=== PATIENT | female | born 1995 | race Caucasian/White ===

== ENCOUNTER 2016-12-29 19:50 | Emergency (ER) | payer MEDICAID ==
[~2016-12-29] VITALS: Ht 157.5 cm; Wt 56.8 kg
[~2016-12-29 19:50] MED LIST: ABILIFY 15MG TA15 MG PO; ADDERALL15 MG PO; ALEVE 220MG220 MG PO; ALEVE220 MG PO; AMOXICILLIN 50500 MG PO; ANAPROX DS550 MG PO; BACTROBAN 22GM22 GM TP; DESYREL 50MG50 MG PO; EC NAPROSYN375 MG PO; FLAGYL500 MG PO; FLINTSTONES1 CTB PO; FOLIC ACID0.4 MG PO; MOTRIN 800800 MG/TAB PO; NO HOME MEDICATIONS; NORCO 325 MG-7.1 TAB PO; PHENERGAN 25 TA25 MG PO; PRENATAL1 TA2 PO; TRAZADONE HYDR100 MG PO; TRAZODO50 MG PO; TRINESSA 281 TAB PO
[2016-12-29 19:53] VITALS: BP 138/70; TEMP 97.8
[2016-12-29 21:06] VITALS: PULSE 69
== END 2016-12-29 21:10 | disposition home or self-care (01) ==
LOC: COL.ER 19:50
DX: S61.512A Laceration without foreign body of left wrist, initial encounter (principal); W25.XXXA Contact with sharp glass, initial encounter; Y92.009 Unspecified place in unspecified non-institutional (private) residence as the place of occurrence of the external cause

== ENCOUNTER 2017-02-12 12:39 | Emergency (ER) | payer MEDICAID ==
[~2017-02-12] VITALS: Ht 160 cm; Wt 59.1 kg
[2017-02-12 12:47] VITALS: TEMP 98.1
[2017-02-12] MEDS ORDERED: BIRTH CONTROL (12:50)
[2017-02-12 14:29] LABS: BASO # 0.1 (0.0-0.2); BASO % 0.8 % (0.0-2.0); EOS # 0.1 (0.0-0.7); EOS % 1.9 % (0-4.0); GRAN # 3.5 (1.4-6.5); GRAN % 55.1 % (42.2-75.2); HEMATOCRIT 38.3 % (37.0-47.0); HEMOGLOBIN 12.6 g/dl (12.5-16.0); LYMPH # 2.3 (1.2-3.4); LYMPH % 37.3 % (20.0-51.0); MEAN CELL VOLUME 90 fl (80.0-100.0); MEAN CORPUSCULAR HEMOGLOBIN 29 pg (27.0-31.0); MEAN CORPUSCULAR HGB CONC 33 g/dl (33.0-37.0); MEAN PLATELET VOLUME 10.4 fl (7.4-10.4); MONO # 0.3 (0.1-0.6); MONO % 4.6 % (1.7-9.3); PLATELET COUNT 238 K/mm3 (130-400); RED BLOOD COUNT 4.28 M/mm3 (4.10-5.30); REDCELL DISTRIBUTION WIDTH-CV 14.1 % (11.5-14.5); WHITE BLOOD COUNT 6.3 K/mm3 (4.8-10.8)
[2017-02-12 14:42] LABS: ADJUSTED CALCIUM 9.5 mg/dL (8.4-10.2); ALBUMIN 4.4 gm/dL (3.5-5.0); BILIRUBIN,TOTAL 0.6 mg/dL (0.0-1.0); CALCIUM 9.8 mg/dL (8.4-10.2); CREATININE, serum 0.76 mg/dL (0.52-1.25); POTASSIUM 4.5 mmol/L (3.4-5.0); TOTAL PROTEIN 7.9 gm/dL (6.4-8.2)
[2017-02-12 15:17] VITALS: BP 109/55; PULSE 56
== END 2017-02-12 15:17 | disposition home or self-care (01) ==
LOC: COL.ER 12:39
PROVIDERS: Physician Assistant
DX: N92.0 Excessive and frequent menstruation with regular cycle (principal)

== ENCOUNTER 2017-05-07 11:24 | Emergency (ER) | payer MEDICAID ==
[~2017-05-07] VITALS: Ht 160 cm; Wt 58.6 kg
[~2017-05-07 11:24] MED LIST changes: +BIRTH CONTROL
[2017-05-07 11:34] VITALS: TEMP 99.5
[2017-05-07] MEDS ORDERED: TRINESSA 281 TAB PO (11:37)
[2017-05-07 13:53] LABS: BASO % 0.3 % (0.0-2.0); EOS # 0.2 (0.0-0.7); EOS % 1.5 % (0-4.0); GRAN # 8.5 (1.4-6.5); GRAN % 86.3 % (42.2-75.2); HEMATOCRIT 40.1 % (37.0-47.0); HEMOGLOBIN 13.7 g/dl (12.5-16.0); LYMPH # 0.8 (1.2-3.4); LYMPH % 8.3 % (20.0-51.0); MEAN CELL VOLUME 89 fl (80.0-100.0); MEAN CORPUSCULAR HEMOGLOBIN 30 pg (27.0-31.0); MEAN CORPUSCULAR HGB CONC 34 g/dl (33.0-37.0); MEAN PLATELET VOLUME 10.1 fl (7.4-10.4); MONO # 0.3 (0.1-0.6); MONO % 3.2 % (1.7-9.3); PLATELET COUNT 240 K/mm3 (130-400); RED BLOOD COUNT 4.53 M/mm3 (4.10-5.30); REDCELL DISTRIBUTION WIDTH-CV 12.8 % (11.5-14.5); WHITE BLOOD COUNT 9.8 K/mm3 (4.8-10.8)
[2017-05-07 14:09] LABS: ALANINE AMINOTRANSFERASE 26 U/L (9-52); ALBUMIN 4.3 gm/dL (3.5-5.0); ALKALINE PHOSPHATASE 108 U/L (50-136); ANION GAP 13 mmol/L (7-16); BILIRUBIN,TOTAL 0.9 mg/dL (0.0-1.0); BLOOD UREA NITROGEN 21 mg/dL (7-17); CALCIUM 9.2 mg/dL (8.4-10.2); CARBON DIOXIDE 23 mmol/L (22-30); CHLORIDE 104 mmol/L (98-107); CREATININE, serum 0.73 mg/dL (0.52-1.25); GLUCOSE 98 mg/dL (74-106); SODIUM 139 mmol/L (137-145); TOTAL PROTEIN 7.1 gm/dL (6.4-8.2)
[2017-05-07 14:10] LABS: C-REACTIVE PROTEIN < 0.5 mg/dL (0.0-0.9)
[2017-05-07] MEDS ORDERED: PHENERGAN 25 TA25 MG PO (14:46)
[2017-05-07 15:01] VITALS: BP 110/62; PULSE 72
== END 2017-05-07 14:50 | disposition home or self-care (01) ==
LOC: COL.ER 11:24
PROVIDERS: Nurse Practitioner
DX: R11.2 Nausea with vomiting, unspecified (principal); R19.7 Diarrhea, unspecified

== ENCOUNTER 2017-10-04 16:43 | Emergency (ER) | payer SELFPAY ==
[~2017-10-04] VITALS: Ht 157.5 cm; Wt 62.3 kg
[~2017-10-04 16:43] MED LIST changes: +ATHLETE'S FOOT1% TP; +PRENATAL1 TA7 PO
[2017-10-04 17:00] VITALS: BP 122/61; PULSE 94; TEMP 97.7
== END 2017-10-04 17:21 | disposition left against medical advice (07) ==
LOC: COL.ER 16:43
DX: Z32.01 Encounter for pregnancy test, result positive (principal)

== ENCOUNTER 2017-11-28 09:14 | Emergency (ER) | payer SELFPAY ==
[~2017-11-28] VITALS: Ht 157.5 cm; Wt 58.4 kg
[2017-11-28 09:21] VITALS: TEMP 98.4
[2017-11-28 10:00] LABS: BASO # 0.1 (0.0-0.2); BASO % 0.4 % (0.0-2.0); EOS # 0.1 (0.0-0.7); EOS % 1.2 % (0-4.0); GRAN # 8.3 (1.4-6.5); GRAN % 69.8 % (42.2-75.2); HEMATOCRIT 41.2 % (37.0-47.0); LYMPH # 2.8 (1.2-3.4); LYMPH % 23.1 % (20.0-51.0); MEAN CELL VOLUME 89 fl (80.0-100.0); MEAN CORPUSCULAR HEMOGLOBIN 30 pg (27.0-31.0); MEAN CORPUSCULAR HGB CONC 34 g/dl (33.0-37.0); MEAN PLATELET VOLUME 9.8 fl (7.4-10.4); MONO # 0.6 (0.1-0.6); MONO % 4.7 % (1.7-9.3); PLATELET COUNT 277 K/mm3 (130-400); RED BLOOD COUNT 4.64 M/mm3 (4.10-5.30); REDCELL DISTRIBUTION WIDTH-CV 13.4 % (11.5-14.5)
[2017-11-28 10:11] LABS: ALBUMIN 5.6 gm/dL (3.5-5.0); BILIRUBIN,TOTAL 0.7 mg/dL (0.0-1.0); C-REACTIVE PROTEIN 1.3 mg/dL (0.0-0.9); CALCIUM 10.8 mg/dL (8.4-10.2); CREATININE, serum 0.64 mg/dL (0.52-1.25); POTASSIUM 3.9 mmol/L (3.4-5.0); TOTAL PROTEIN 9.6 gm/dL (6.4-8.2)
[2017-11-28 10:35] LABS: COLLECTION METHOD CLEAN CATCH
[2017-11-28 11:02] LABS: MUCOUS Present /lpf; PH 5 (5-8); URINE APPEARANCE Cloudy; URINE BACTERIA Rare /hpf; URINE BILIRUBIN Negative (NEGATIVE); URINE BLOOD Negative (NEGATIVE); URINE COLOR Amber; URINE GLUCOSE Negative (NEGATIVE); URINE KETONE Trace (NEGATIVE); URINE LEUKOCYTE ESTERASE Negative (NEGATIVE); URINE NITRATE Negative (NEGATIVE); URINE PROTEIN(semi-quant) 2+ (NEGATIVE); URINE UROBILINOGEN Negative (NEGATIVE)
[2017-11-28] MEDS ORDERED: PHENERGAN 25 TA25 MG PO (13:16)
[2017-11-28 13:32] VITALS: BP 104/84; PULSE 60
== END 2017-11-28 13:34 | disposition home or self-care (01) ==
LOC: COL.ER 09:14
PROVIDERS: Emergency Medicine
DX: O99.611 Diseases of the digestive system complicating pregnancy, first trimester (principal); K59.00 Constipation, unspecified; K22.6 Gastro-esophageal laceration-hemorrhage syndrome; Z3A.00 Weeks of gestation of pregnancy not specified
CPT/HCPCS: J2550; J7030

== ENCOUNTER 2017-12-02 22:28 | Emergency (ER) | payer SELFPAY ==
[~2017-12-02] VITALS: Ht 157.5 cm; Wt 58.2 kg
[2017-12-02 22:33] VITALS: BP 114/63; TEMP 98
[2017-12-02 23:13] LABS: COLLECTION METHOD CLEAN CATCH
[2017-12-02 23:18] LABS: BASO # 0.1 (0.0-0.2); BASO % 0.4 % (0.0-2.0); EOS # 0.2 (0.0-0.7); EOS % 1.5 % (0-4.0); GRAN # 7.7 (1.4-6.5); GRAN % 68.8 % (42.2-75.2); HEMATOCRIT 34.4 % (37.0-47.0); HEMOGLOBIN 11.9 g/dl (12.5-16.0); LYMPH # 2.7 (1.2-3.4); LYMPH % 24.2 % (20.0-51.0); MEAN CELL VOLUME 89 fl (80.0-100.0); MEAN CORPUSCULAR HEMOGLOBIN 31 pg (27.0-31.0); MEAN CORPUSCULAR HGB CONC 35 g/dl (33.0-37.0); MEAN PLATELET VOLUME 10.1 fl (7.4-10.4); MONO # 0.5 (0.1-0.6); MONO % 4.7 % (1.7-9.3); PLATELET COUNT 235 K/mm3 (130-400); RED BLOOD COUNT 3.88 M/mm3 (4.10-5.30); REDCELL DISTRIBUTION WIDTH-CV 13.2 % (11.5-14.5)
[2017-12-02 23:24] LABS: AMORPHOUS CRYSTAL Present /uL; MUCOUS Present /lpf; PH 6 (5-8); SQUAMOUS EPITHELIAL 20-50 /hpf; URINE APPEARANCE Cloudy; URINE BACTERIA Rare /hpf; URINE BILIRUBIN Negative (NEGATIVE); URINE BLOOD Negative (NEGATIVE); URINE COLOR Yellow; URINE GLUCOSE Negative (NEGATIVE); URINE KETONE Negative (NEGATIVE); URINE LEUKOCYTE ESTERASE Trace (NEGATIVE); URINE NITRATE Negative (NEGATIVE); URINE PROTEIN(semi-quant) Negative (NEGATIVE); URINE RBC 0-2 /hpf; URINE UROBILINOGEN >=4.0 mg/dL (NEGATIVE)
[2017-12-02 23:30] LABS: ALBUMIN 4.2 gm/dL (3.5-5.0); BILIRUBIN,TOTAL 0.2 mg/dL (0.0-1.0); CALCIUM 9.8 mg/dL (8.4-10.2); CREATININE, serum 0.54 mg/dL (0.52-1.25); POTASSIUM 3.4 mmol/L (3.4-5.0); TOTAL PROTEIN 7.5 gm/dL (6.4-8.2)
[2017-12-03 00:46] VITALS: PULSE 84
== END 2017-12-03 00:47 | disposition home or self-care (01) ==
LOC: COL.ER 22:28
PROVIDERS: Physician Assistant
DX: O21.9 Vomiting of pregnancy, unspecified (principal); O26.891 Other specified pregnancy related conditions, first trimester; R10.9 Unspecified abdominal pain; O99.331 Smoking (tobacco) complicating pregnancy, first trimester; F17.210 Nicotine dependence, cigarettes, uncomplicated; Z3A.08 8 weeks gestation of pregnancy
CPT/HCPCS: J2765; J7030

== ENCOUNTER 2019-01-28 12:42 | Emergency (ER) | payer MEDICAID ==
[~2019-01-28] VITALS: Ht 160 cm; Wt 67.3 kg
[2019-01-28 12:46] VITALS: BP 125/60; PULSE 64; TEMP 98.4
[2019-01-28] MEDS ORDERED: ABILIFY5 MG PO (16:02)
== END 2019-01-28 16:39 | disposition home or self-care (01) ==
LOC: COL.ER 12:42
DX: K40.90 Unilateral inguinal hernia, without obstruction or gangrene, not specified as recurrent (principal); F17.210 Nicotine dependence, cigarettes, uncomplicated; F20.9 Schizophrenia, unspecified; F31.9 Bipolar disorder, unspecified; Z98.51 Tubal ligation status

== ENCOUNTER → 2019-03-01 | Outpatient (CLI) | payer MEDICAID ==
[~2019-03-01] MED LIST changes: +ABILIFY5 MG PO
== END ==
LOC: MC.RAD 09:45
DX: N63.42 Unspecified lump in left breast, subareolar (principal)

== ENCOUNTER → 2019-03-07 | Outpatient (CLI) | payer MEDICAID | LOC: MC.RAD 08:00 | DX: N63.20 Unspecified lump in the left breast, unspecified quadrant (principal); Z98.82 Breast implant status ==

== ENCOUNTER 2019-05-29 17:37 | Emergency (ER) | payer MEDICAID | END 2019-05-29 18:50 | disposition left against medical advice (07) | LOC: COL.ER 17:37 | DX: Z72.89 Other problems related to lifestyle (principal) ==

== ENCOUNTER 2019-05-29 19:55 | Emergency (ER) | payer MEDICAID ==
[~2019-05-29] VITALS: Ht 162.6 cm; Wt 73.6 kg
[2019-05-29 20:11] VITALS: TEMP 97.7
[2019-05-29 22:38] LABS: BASO % 0.4 % (0.0-2.0); EOS # 0.1 (0.0-0.7); EOS % 0.7 % (0-4.0); GRAN # 6.4 (1.4-6.5); GRAN % 68.1 % (42.2-75.2); HEMATOCRIT 40.4 % (37.0-47.0); HEMOGLOBIN 13.6 g/dl (12.5-16.0); LYMPH # 2.4 (1.2-3.4); LYMPH % 25.6 % (20.0-51.0); MEAN CELL VOLUME 89 fl (80.0-100.0); MEAN CORPUSCULAR HEMOGLOBIN 30 pg (27.0-31.0); MEAN CORPUSCULAR HGB CONC 34 g/dl (33.0-37.0); MONO # 0.5 (0.1-0.6); MONO % 4.9 % (1.7-9.3); PLATELET COUNT 265 K/mm3 (130-400); RED BLOOD COUNT 4.54 M/mm3 (4.10-5.30); REDCELL DISTRIBUTION WIDTH-CV 12.7 % (11.5-14.5)
[2019-05-29 22:48] LABS: ALANINE AMINOTRANSFERASE 12 U/L (9-52); ALBUMIN 4.8 gm/dL (3.5-5.0); ALKALINE PHOSPHATASE 152 U/L (50-136); ANION GAP 15 mmol/L (7-16); AST,SGOT 19 U/L (15-37); BILIRUBIN,TOTAL 0.7 mg/dL (0.0-1.0); BLOOD UREA NITROGEN 15 mg/dL (7-17); CALCIUM 9.7 mg/dL (8.4-10.2); CARBON DIOXIDE 22 mmol/L (22-30); CHLORIDE 104 mmol/L (98-107); CREATININE, serum 0.74 (0.52-1.25); GLUCOSE 118 mg/dL (74-106); POTASSIUM 3.6 mmol/L (3.4-5.0); SODIUM 142 mmol/L (137-145); TOTAL PROTEIN 8.4 gm/dL (6.4-8.2)
[2019-05-29 22:59] LABS: TROPONIN-I < 0.012 ng/mL (0.000-0.035)
[2019-05-29 23:34] VITALS: BP 129/88; PULSE 63
== END 2019-05-29 23:30 | disposition home or self-care (01) ==
LOC: COL.ER 19:55
PROVIDERS: Emergency Medicine
DX: R55 Syncope and collapse (principal); F31.9 Bipolar disorder, unspecified; Z98.51 Tubal ligation status

== ENCOUNTER 2020-08-14 13:15 | Emergency (ER) | payer MEDICAID ==
[~2020-08-14] VITALS: Ht 162.6 cm; Wt 63.6 kg
[2020-08-14 13:25] VITALS: BP 121/78; TEMP 98
[2020-08-14 14:01] LABS: BASO # 0.1 (0.0-0.2); BASO % 0.5 % (0.0-2.0); EOS % 0.2 % (0-4.0); GRAN # 10.1 (1.4-6.5); GRAN % 77.8 % (42.2-75.2); HEMATOCRIT 45.6 % (37.0-47.0); HEMOGLOBIN 15.6 g/dl (12.5-16.0); LYMPH # 2.2 (1.2-3.4); LYMPH % 17.2 % (20.0-51.0); MEAN CELL VOLUME 90 fl (80.0-100.0); MEAN CORPUSCULAR HEMOGLOBIN 31 pg (27.0-31.0); MEAN CORPUSCULAR HGB CONC 34 g/dl (33.0-37.0); MEAN PLATELET VOLUME 10.4 fl (7.4-10.4); MONO # 0.5 (0.1-0.6); MONO % 3.9 % (1.7-9.3); PLATELET COUNT 280 K/mm3 (130-400); RED BLOOD COUNT 5.08 M/mm3 (4.10-5.30); REDCELL DISTRIBUTION WIDTH-CV 13.2 % (11.5-14.5)
[2020-08-14 14:15] LABS: ALANINE AMINOTRANSFERASE 15 U/L (4-34); ALBUMIN 5.4 gm/dL (3.5-5.0); ALKALINE PHOSPHATASE 127 U/L (50-136); ANION GAP 15 mmol/L (7-16); AST,SGOT 22 U/L (15-37); BLOOD UREA NITROGEN 13 mg/dL (7-17); CALCIUM 10.6 mg/dL (8.4-10.2); CARBON DIOXIDE 23 mmol/L (22-30); CHLORIDE 104 mmol/L (98-107); CREATININE, serum 0.99 (0.52-1.25); GLUCOSE 106 mg/dL (74-106); LIPASE 64 U/L (23-300); POTASSIUM 3.2 mmol/L (3.4-5.0); SODIUM 143 mmol/L (137-145); TOTAL PROTEIN 9.6 gm/dL (6.4-8.2)
[2020-08-14 14:17] LABS: C-REACTIVE PROTEIN < 0.5 mg/dL (0.0-0.9)
[2020-08-14 14:26] LABS: TROPONIN-I < 0.012 ng/mL (0.000-0.035)
[2020-08-14 16:47] VITALS: PULSE 64
== END 2020-08-14 16:47 | disposition home or self-care (01) ==
LOC: COL.ER 13:15
PROVIDERS: Emergency Medicine
DX: R07.89 Other chest pain (principal); K92.0 Hematemesis; R06.4 Hyperventilation; F31.9 Bipolar disorder, unspecified; Z32.02 Encounter for pregnancy test, result negative
CPT/HCPCS: C9113; J1630; J2060; J2405; J7030

== ENCOUNTER 2020-10-15 10:43 | Emergency (ER) | payer MEDICAID ==
[~2020-10-15] VITALS: Ht 160 cm; Wt 62.7 kg
[2020-10-15 10:56] VITALS: TEMP 97.5
[2020-10-15] MEDS ORDERED: DESYREL 50MG50 MG PO (13:37)
[2020-10-15] MEDS ORDERED: PROZAC 10MG10 MG PO (13:47)
[2020-10-15 14:00] LABS: BASO # 0.1 (0.0-0.2); BASO % 0.6 % (0.0-2.0); EOS # 0.1 (0.0-0.7); EOS % 1.5 % (0-4.0); GRAN # 5.1 (1.4-6.5); HEMATOCRIT 40.9 % (37.0-47.0); HEMOGLOBIN 13.6 g/dl (12.5-16.0); LYMPH # 2.5 (1.2-3.4); MEAN CELL VOLUME 92 fl (80.0-100.0); MEAN CORPUSCULAR HEMOGLOBIN 31 pg (27.0-31.0); MEAN CORPUSCULAR HGB CONC 33 g/dl (33.0-37.0); MEAN PLATELET VOLUME 11.3 fl (7.4-10.4); MONO # 0.5 (0.1-0.6); MONO % 5.7 % (1.7-9.3); PLATELET COUNT 123 K/mm3 (130-400); RED BLOOD COUNT 4.46 M/mm3 (4.10-5.30); REDCELL DISTRIBUTION WIDTH-CV 13.3 % (11.5-14.5)
[2020-10-15 14:12] LABS: ALANINE AMINOTRANSFERASE 12 U/L (4-34); ALBUMIN 4.7 gm/dL (3.5-5.0); ALKALINE PHOSPHATASE 90 U/L (50-136); ANION GAP 11 mmol/L (7-16); AST,SGOT 40 U/L (15-37); BILIRUBIN,TOTAL 0.8 mg/dL (0.0-1.0); BLOOD UREA NITROGEN 14 mg/dL (7-17); CALCIUM 9.6 mg/dL (8.4-10.2); CARBON DIOXIDE 21 mmol/L (22-30); CHLORIDE 106 mmol/L (98-107); CREATININE, serum 0.75 (0.52-1.25); GLUCOSE 87 mg/dL (74-106); POTASSIUM 3.9 mmol/L (3.4-5.0); SODIUM 139 mmol/L (137-145); TOTAL PROTEIN 7.7 gm/dL (6.4-8.2)
[2020-10-15 14:25] LABS: TROPONIN-I < 0.012 ng/mL (0.000-0.035)
[2020-10-15 14:30] VITALS: BP 129/78; PULSE 82
== END 2020-10-15 14:43 | disposition home or self-care (01) ==
LOC: COL.ER 10:43
PROVIDERS: Emergency Medicine
DX: J06.9 Acute upper respiratory infection, unspecified (principal); F41.9 Anxiety disorder, unspecified; Z20.828 Contact with and (suspected) exposure to other viral communicable diseases; Z88.3 Allergy status to other anti-infective agents; Z91.018 Allergy to other foods; Z91.040 Latex allergy status

== ENCOUNTER 2020-12-20 15:24 | Emergency (ER) | payer MEDICAID ==
[~2020-12-20] VITALS: Ht 160 cm; Wt 63.6 kg
[~2020-12-20 15:24] MED LIST changes: +PROZAC 10MG10 MG PO
[2020-12-20 15:27] VITALS: BP 110/72; TEMP 97.8
[2020-12-20 16:08] LABS: COLLECTION METHOD CLEAN CATCH
[2020-12-20 16:27] LABS: MUCOUS Present /lpf; PH 9 (5-8); SQUAMOUS EPITHELIAL 0-2 /hpf; URINE APPEARANCE Cloudy; URINE BACTERIA Many /hpf; URINE BILIRUBIN Negative (NEGATIVE); URINE BLOOD Negative (NEGATIVE); URINE COLOR Yellow; URINE GLUCOSE Negative (NEGATIVE); URINE KETONE Negative (NEGATIVE); URINE LEUKOCYTE ESTERASE Negative (NEGATIVE); URINE NITRATE Negative (NEGATIVE); URINE PROTEIN(semi-quant) 3+ (NEGATIVE); URINE RBC 0-2 /hpf
[2020-12-20 16:30] LABS: BASO % 0.6 % (0.0-2.0); EOS # 0.2 (0.0-0.7); EOS % 2.7 % (0-4.0); GRAN # 3.7 (1.4-6.5); GRAN % 54.9 % (42.2-75.2); HEMOGLOBIN 12.6 g/dl (12.5-16.0); LYMPH # 2.5 (1.2-3.4); LYMPH % 36.2 % (20.0-51.0); MEAN CELL VOLUME 94 fl (80.0-100.0); MEAN CORPUSCULAR HEMOGLOBIN 31 pg (27.0-31.0); MEAN CORPUSCULAR HGB CONC 33 g/dl (33.0-37.0); MEAN PLATELET VOLUME 10.8 fl (7.4-10.4); MONO # 0.4 (0.1-0.6); MONO % 5.3 % (1.7-9.3); PLATELET COUNT 236 K/mm3 (130-400); RED BLOOD COUNT 4.06 M/mm3 (4.10-5.30); REDCELL DISTRIBUTION WIDTH-CV 13.1 % (11.5-14.5)
[2020-12-20 16:38] LABS: BILIRUBIN,TOTAL 0.2 mg/dL (0.0-1.0); CALCIUM 8.9 mg/dL (8.4-10.2); CREATININE, serum 0.88 (0.52-1.25); POTASSIUM 3.4 mmol/L (3.4-5.0); TOTAL PROTEIN 6.6 gm/dL (6.4-8.2)
[2020-12-20] MEDS ORDERED: PRILOSEC 20MG20 MG PO (16:51)
[2020-12-20 17:09] VITALS: PULSE 74
== END 2020-12-20 17:08 | disposition home or self-care (01) ==
LOC: COL.ER 15:24
PROVIDERS: Physician Assistant
DX: K21.9 Gastro-esophageal reflux disease without esophagitis (principal); F31.9 Bipolar disorder, unspecified; F20.9 Schizophrenia, unspecified; Z32.02 Encounter for pregnancy test, result negative; Z91.040 Latex allergy status

== ENCOUNTER 2020-12-31 23:02 | Emergency (ER) | payer MEDICAID ==
[~2020-12-31] VITALS: Ht 160 cm; Wt 56.8 kg
[~2020-12-31 23:02] MED LIST changes: +PRILOSEC 20MG20 MG PO
[2020-12-31 23:11] VITALS: TEMP 97.7
[2020-12-31 23:51] LABS: BASO # 0.1 (0.0-0.2); BASO % 0.4 % (0.0-2.0); EOS # 0.1 (0.0-0.7); EOS % 0.9 % (0-4.0); GRAN # 10.2 (1.4-6.5); GRAN % 73.1 % (42.2-75.2); HEMOGLOBIN 14.1 g/dl (12.5-16.0); LYMPH # 2.8 (1.2-3.4); LYMPH % 20.3 % (20.0-51.0); MEAN CELL VOLUME 90 fl (80.0-100.0); MEAN CORPUSCULAR HEMOGLOBIN 30 pg (27.0-31.0); MEAN CORPUSCULAR HGB CONC 34 g/dl (33.0-37.0); MEAN PLATELET VOLUME 10.2 fl (7.4-10.4); MONO # 0.7 (0.1-0.6); MONO % 4.9 % (1.7-9.3); PLATELET COUNT 258 K/mm3 (130-400); RED BLOOD COUNT 4.66 M/mm3 (4.10-5.30); REDCELL DISTRIBUTION WIDTH-CV 13.2 % (11.5-14.5)
[2021-01-01 00:03] LABS: ALANINE AMINOTRANSFERASE 15 U/L (4-34); ALBUMIN 5.3 gm/dL (3.5-5.0); ALKALINE PHOSPHATASE 107 U/L (50-136); ANION GAP 12 mmol/L (7-16); AST,SGOT 27 U/L (15-37); BILIRUBIN,TOTAL 0.5 mg/dL (0.0-1.0); BLOOD UREA NITROGEN 13 mg/dL (7-17); CALCIUM 10.3 mg/dL (8.4-10.2); CARBON DIOXIDE 23 mmol/L (22-30); CHLORIDE 104 mmol/L (98-107); CREATININE, serum 0.71 (0.52-1.25); GLUCOSE 100 mg/dL (74-106); LIPASE 135 U/L (23-300); POTASSIUM 3.4 mmol/L (3.4-5.0); SODIUM 139 mmol/L (137-145); TOTAL PROTEIN 8.7 gm/dL (6.4-8.2)
[2021-01-01 00:16] LABS: TROPONIN-I < 0.012 ng/mL (0.000-0.035)
[2021-01-01 00:42] VITALS: BP 123/82; PULSE 59
== END 2021-01-01 00:45 | disposition home or self-care (01) ==
LOC: COL.ER 23:02
PROVIDERS: Emergency Medicine
DX: S60.051A Contusion of right little finger without damage to nail, initial encounter (principal); K21.9 Gastro-esophageal reflux disease without esophagitis; F17.200 Nicotine dependence, unspecified, uncomplicated; Z91.040 Latex allergy status; Z32.02 Encounter for pregnancy test, result negative; W23.1XXA Caught, crushed, jammed, or pinched between stationary objects, initial encounter; Y99.0 Civilian activity done for income or pay

== ENCOUNTER 2021-01-20 21:09 | Emergency (ER) | payer MEDICAID ==
[~2021-01-20] VITALS: Ht 160 cm; Wt 58.6 kg
[2021-01-20 21:13] VITALS: TEMP 98.3
[2021-01-20] MEDS ORDERED: ILOTYCIN5 MG/GM OP (21:33)
[2021-01-20 21:40] VITALS: BP 112/70; PULSE 66
== END 2021-01-20 21:40 | disposition home or self-care (01) ==
LOC: COL.ER 21:09
DX: Z71.1 Person with feared health complaint in whom no diagnosis is made (principal); F32.9 Major depressive disorder, single episode, unspecified; F41.9 Anxiety disorder, unspecified; F17.200 Nicotine dependence, unspecified, uncomplicated; Z88.8 Allergy status to other drugs, medicaments and biological substances; Z91.040 Latex allergy status; Z91.048 Other nonmedicinal substance allergy status

== ENCOUNTER 2021-01-25 09:14 | Emergency (ER) | payer MEDICAID ==
[~2021-01-25] VITALS: Ht 160 cm; Wt 59.1 kg
[~2021-01-25 09:14] MED LIST changes: +ILOTYCIN5 MG/GM OP
[2021-01-25 09:19] VITALS: TEMP 98.1
[2021-01-25 10:19] VITALS: BP 119/69; PULSE 70
== END 2021-01-25 10:22 | disposition home or self-care (01) ==
LOC: COL.ER 09:14
DX: B30.9 Viral conjunctivitis, unspecified (principal); F41.9 Anxiety disorder, unspecified; F20.9 Schizophrenia, unspecified; G35 Multiple sclerosis; F17.210 Nicotine dependence, cigarettes, uncomplicated

== ENCOUNTER 2021-01-31 08:40 | Emergency (ER) | payer MEDICAID ==
[~2021-01-31] VITALS: Ht 160 cm; Wt 54.4 kg
[2021-01-31 08:46] VITALS: TEMP 97.6
[2021-01-31 09:14] LABS: BASO # 0.1 (0.0-0.2); BASO % 0.6 % (0.0-2.0); EOS # 0.2 (0.0-0.7); EOS % 1.9 % (0-4.0); GRAN # 5.2 (1.4-6.5); GRAN % 65.5 % (42.2-75.2); HEMATOCRIT 46.7 % (37.0-47.0); HEMOGLOBIN 15.9 g/dl (12.5-16.0); LYMPH # 2.1 (1.2-3.4); LYMPH % 25.7 % (20.0-51.0); MEAN CELL VOLUME 90 fl (80.0-100.0); MEAN CORPUSCULAR HEMOGLOBIN 31 pg (27.0-31.0); MEAN CORPUSCULAR HGB CONC 34 g/dl (33.0-37.0); MEAN PLATELET VOLUME 10.1 fl (7.4-10.4); MONO # 0.5 (0.1-0.6); PLATELET COUNT 289 K/mm3 (130-400); RED BLOOD COUNT 5.18 M/mm3 (4.10-5.30); REDCELL DISTRIBUTION WIDTH-CV 12.9 % (11.5-14.5)
[2021-01-31 09:28] LABS: ALBUMIN 5.4 gm/dL (3.5-5.0); BILIRUBIN,TOTAL 1.2 mg/dL (0.0-1.0); CALCIUM 10.3 mg/dL (8.4-10.2); CREATININE, serum 0.85 (0.52-1.25); POTASSIUM 3.6 mmol/L (3.4-5.0)
[2021-01-31] MEDS ORDERED: ABILIFY5 MG PO (09:35)
[2021-01-31 09:43] VITALS: BP 125/96; PULSE 80
== END 2021-01-31 09:44 | disposition home or self-care (01) ==
LOC: COL.ER 08:40
PROVIDERS: Emergency Medicine
DX: F31.9 Bipolar disorder, unspecified (principal); R11.0 Nausea; F17.210 Nicotine dependence, cigarettes, uncomplicated; Z76.0 Encounter for issue of repeat prescription

== ENCOUNTER 2021-04-18 12:37 | Emergency (ER) | payer MEDICAID ==
[~2021-04-18] VITALS: Ht 160 cm; Wt 52.3 kg
[2021-04-18 12:42] VITALS: TEMP 97.7
[2021-04-18 13:23] LABS: BASO % 0.6 % (0.0-2.0); EOS # 0.3 (0.0-0.7); GRAN # 3.8 (1.4-6.5); GRAN % 60.7 % (42.2-75.2); HEMATOCRIT 40.9 % (37.0-47.0); HEMOGLOBIN 13.5 g/dl (12.5-16.0); LYMPH # 1.8 (1.2-3.4); LYMPH % 28.8 % (20.0-51.0); MEAN CELL VOLUME 91 fl (80.0-100.0); MEAN CORPUSCULAR HEMOGLOBIN 30 pg (27.0-31.0); MEAN CORPUSCULAR HGB CONC 33 g/dl (33.0-37.0); MEAN PLATELET VOLUME 9.3 fl (7.4-10.4); MONO # 0.4 (0.1-0.6); MONO % 5.6 % (1.7-9.3); PLATELET COUNT 248 K/mm3 (130-400); RED BLOOD COUNT 4.52 M/mm3 (4.10-5.30); REDCELL DISTRIBUTION WIDTH-CV 13.4 % (11.5-14.5)
[2021-04-18 13:36] LABS: ALANINE AMINOTRANSFERASE 29 U/L (4-34); ALKALINE PHOSPHATASE 91 U/L (50-136); ANION GAP 7 mmol/L (7-16); AST,SGOT 54 U/L (15-37); BILIRUBIN,TOTAL 0.5 mg/dL (0.0-1.0); BLOOD UREA NITROGEN 16 mg/dL (7-17); CALCIUM 9.7 mg/dL (8.4-10.2); CARBON DIOXIDE 28 mmol/L (22-30); CHLORIDE 104 mmol/L (98-107); CREATININE, serum 0.72 (0.52-1.25); GLUCOSE 58 mg/dL (74-106); LIPASE 75 U/L (23-300); POTASSIUM 3.8 mmol/L (3.4-5.0); SODIUM 139 mmol/L (137-145); TOTAL PROTEIN 8.5 gm/dL (6.4-8.2)
[2021-04-18 13:37] LABS: C-REACTIVE PROTEIN < 0.5 mg/dL (0.0-0.9)
[2021-04-18 14:14] LABS: COLLECTION METHOD CLEAN CATCH
[2021-04-18 14:19] LABS: MUCOUS Present /lpf; PH 6 (5-8); SQUAMOUS EPITHELIAL 0-2 /hpf; URINE APPEARANCE Clear; URINE BACTERIA Rare /hpf; URINE BILIRUBIN Negative (NEGATIVE); URINE BLOOD 3+ (NEGATIVE); URINE COLOR Yellow; URINE GLUCOSE Negative (NEGATIVE); URINE KETONE Negative (NEGATIVE); URINE LEUKOCYTE ESTERASE Negative (NEGATIVE); URINE NITRATE Negative (NEGATIVE); URINE PROTEIN(semi-quant) Negative (NEGATIVE); URINE RBC 0-2 /hpf
[2021-04-18] MEDS ORDERED: ZOFRAN ODT4 MG PO (14:45)
[2021-04-18 14:50] VITALS: BP 124/71; PULSE 74
== END 2021-04-18 14:51 | disposition home or self-care (01) ==
LOC: COL.ER 12:37
PROVIDERS: Nurse Practitioner
DX: R11.2 Nausea with vomiting, unspecified (principal); R10.84 Generalized abdominal pain; F17.210 Nicotine dependence, cigarettes, uncomplicated; Z32.02 Encounter for pregnancy test, result negative

== ENCOUNTER 2021-06-11 16:34 | Emergency (ER) | payer MEDICAID ==
[~2021-06-11] VITALS: Ht 160 cm; Wt 56.8 kg
[~2021-06-11 16:34] MED LIST changes: +ZOFRAN ODT4 MG PO
[2021-06-11 17:18] VITALS: TEMP 98.3
[2021-06-11] MEDS ORDERED: ZOFRAN ODT4 MG PO (18:27)
[2021-06-11 19:48] VITALS: BP 117/69; PULSE 67
== END 2021-06-11 19:48 | disposition home or self-care (01) ==
LOC: COL.ER 16:34
DX: B34.9 Viral infection, unspecified (principal); F31.9 Bipolar disorder, unspecified; Z20.822 Contact with and (suspected) exposure to COVID-19; Z79.899 Other long term (current) drug therapy

== ENCOUNTER 2021-06-30 08:36 | Emergency (ER) | payer MEDICAID ==
[~2021-06-30] VITALS: Ht 160 cm; Wt 57.3 kg
[2021-06-30 09:19] VITALS: TEMP 97.5
[2021-06-30] MEDS ORDERED: NAPROSYN500 MG PO (10:34)
[2021-06-30 10:47] VITALS: BP 123/75; PULSE 61
== END 2021-06-30 10:47 | disposition home or self-care (01) ==
LOC: COL.ER 08:36
DX: S09.93XA Unspecified injury of face, initial encounter (principal); F31.9 Bipolar disorder, unspecified; F20.9 Schizophrenia, unspecified; Z79.899 Other long term (current) drug therapy; W54.1XXA Struck by dog, initial encounter

== ENCOUNTER → 2021-07-28 | Emergency (ER) | payer MEDICAID ==
[~2021-07-28] MED LIST changes: +NAPROSYN500 MG PO
== END ==
LOC: COL.ER 10:32
DX: R69 Illness, unspecified (principal)

== ENCOUNTER 2021-09-05 09:00 | Emergency (ER) | payer MEDICAID ==
[~2021-09-05] VITALS: Ht 162.6 cm; Wt 58.2 kg
[2021-09-05 09:15] VITALS: BP 126/53; TEMP 98.8
[2021-09-05 11:13] VITALS: PULSE 68
== END 2021-09-05 11:13 | disposition home or self-care (01) ==
LOC: COL.ER 09:00
DX: F41.0 Panic disorder [episodic paroxysmal anxiety] (principal); F31.9 Bipolar disorder, unspecified; K21.9 Gastro-esophageal reflux disease without esophagitis; F17.210 Nicotine dependence, cigarettes, uncomplicated; Z79.899 Other long term (current) drug therapy

== ENCOUNTER 2022-02-16 17:17 | Emergency (ER) | payer MEDICAID ==
[~2022-02-16] VITALS: Ht 160 cm; Wt 71.8 kg
[2022-02-16 17:24] VITALS: TEMP 98.2
[2022-02-16 18:37] VITALS: BP 117/63; PULSE 63
== END 2022-02-16 18:46 | disposition home or self-care (01) ==
LOC: COL.ER 17:17
DX: S60.032A Contusion of left middle finger without damage to nail, initial encounter (principal); F17.200 Nicotine dependence, unspecified, uncomplicated; Z91.040 Latex allergy status; W22.8XXA Striking against or struck by other objects, initial encounter

== ENCOUNTER 2022-05-16 18:49 | Emergency (ER) | payer MEDICAID ==
[~2022-05-16] VITALS: Ht 162.6 cm; Wt 64.1 kg
[2022-05-16 18:56] VITALS: TEMP 98.1
[2022-05-16 19:17] LABS: COLLECTION METHOD CLEAN CATCH
[2022-05-16 19:20] LABS: BASO # 0.1 K/mm3 (0.0-0.2); BASO % 0.6 % (0.0-2.0); EOS # 0.2 K/mm3 (0.0-0.7); EOS % 1.9 % (0.0-4.0); GRAN # 6.1 K/mm3 (1.4-6.5); GRAN % 63.8 % (42.2-75.2); HEMATOCRIT 40.2 % (37.0-47.0); HEMOGLOBIN 13.4 g/dl (12.5-16.0); LYMPH # 2.7 K/mm3 (1.2-3.4); LYMPH % 28.4 % (20.0-51.0); MEAN CELL VOLUME 90 fl (80.0-100.0); MEAN CORPUSCULAR HEMOGLOBIN 30 pg (27-31); MEAN CORPUSCULAR HGB CONC 33 g/dl (33.0-37.0); MEAN PLATELET VOLUME 10.1 fl (7.4-10.4); MONO # 0.5 K/mm3 (0.1-0.6); PLATELET COUNT 252 K/mm3 (130-400); RED BLOOD COUNT 4.47 M/mm3 (4.10-5.30); REDCELL DISTRIBUTION WIDTH-CV 13.2 % (11.5-14.5)
[2022-05-16 19:28] LABS: MUCOUS Present (NOT PRESENT); PH 5 (5-8); SQUAMOUS EPITHELIAL 20-50 /hpf (0-10); URINE APPEARANCE Cloudy (CLEAR/HAZY); URINE BACTERIA None Seen /hpf (NONE SEEN); URINE BILIRUBIN Negative (NEGATIVE); URINE BLOOD Negative (NEGATIVE); URINE COLOR Yellow (YELLOW); URINE GLUCOSE Negative (NEGATIVE); URINE KETONE Trace (NEGATIVE); URINE LEUKOCYTE ESTERASE Negative (NEGATIVE); URINE NITRATE Negative (NEGATIVE); URINE PROTEIN(semi-quant) Negative (NEGATIVE)
[2022-05-16 19:37] LABS: ALANINE AMINOTRANSFERASE 8 U/L (0-55); ALBUMIN 4.2 gm/dL (3.5-5.0); ALCOHOL(ethanol),MEDICAL < 10 mg/dL (0-10); ALKALINE PHOSPHATASE 94 U/L (40-150); ANION GAP 11 mmol/L (7-16); AST,SGOT 11 U/L (5-34); BILIRUBIN,TOTAL 0.3 mg/dL (0.2-1.2); BLOOD UREA NITROGEN 13 mg/dL (7-19); C-REACTIVE PROTEIN 0.09 mg/dL (0.00-0.50); CALCIUM 9.2 mg/dL (8.4-10.2); CARBON DIOXIDE 23 mmol/L (22-29); CHLORIDE 109 mmol/L (98-107); CREATININE, serum 0.85 mg/dL (0.57-1.11); GLUCOSE 139 mg/dL (70-99); LIPASE 36 U/L (8-78); POTASSIUM 3.8 mmol/L (3.5-4.5); SODIUM 143 mmol/L (136-145); TOTAL PROTEIN 7.4 gm/dL (6.2-8.1)
[2022-05-16] MEDS ORDERED: CARAFATE 1GM1 G PO (23:16)
[2022-05-16 23:27] VITALS: BP 101/62; PULSE 57
== END 2022-05-16 23:28 | disposition home or self-care (01) ==
LOC: COL.ER 18:49
PROVIDERS: Nurse Practitioner
DX: R10.30 Lower abdominal pain, unspecified (principal); F17.200 Nicotine dependence, unspecified, uncomplicated; Z32.02 Encounter for pregnancy test, result negative; Z91.040 Latex allergy status
CPT/HCPCS: J1885; J2405; J2550; J3010; J7030; Q9967

== ENCOUNTER 2022-06-07 16:25 | Emergency (ER) | payer MEDICAID ==
[~2022-06-07] VITALS: Ht 162.6 cm; Wt 59.1 kg
[~2022-06-07 16:25] MED LIST changes: +CARAFATE 1GM1 G PO; +NORCO 325 MG-51 TAB PO
[2022-06-07 17:01] VITALS: BP 133/83; PULSE 77; TEMP 98.2
[2022-06-08] MEDS ORDERED: ZOFRAN ODT4 MG PO (16:05)
== END 2022-06-07 19:10 | disposition left against medical advice (07) ==
LOC: COL.ER 16:25
DX: R10.9 Unspecified abdominal pain (principal); R11.2 Nausea with vomiting, unspecified; R19.7 Diarrhea, unspecified; F20.9 Schizophrenia, unspecified; F44.81 Dissociative identity disorder

== ENCOUNTER 2022-06-08 13:59 | Emergency (ER) | payer MEDICAID ==
[~2022-06-08] VITALS: Ht 162.6 cm; Wt 59.1 kg
[2022-06-08 15:15] LABS: BASO # 0.1 K/mm3 (0.0-0.2); BASO % 0.7 % (0.0-2.0); EOS # 0.1 K/mm3 (0.0-0.7); GRAN # 4.2 K/mm3 (1.4-6.5); GRAN % 59.8 % (42.2-75.2); HEMATOCRIT 44.8 % (37.0-47.0); HEMOGLOBIN 15.4 g/dl (12.5-16.0); LYMPH # 2.1 K/mm3 (1.2-3.4); LYMPH % 29.9 % (20.0-51.0); MEAN CELL VOLUME 89 fl (80.0-100.0); MEAN CORPUSCULAR HEMOGLOBIN 31 pg (27-31); MEAN CORPUSCULAR HGB CONC 34 g/dl (33.0-37.0); MEAN PLATELET VOLUME 10.7 fl (7.4-10.4); MONO # 0.5 K/mm3 (0.1-0.6); MONO % 7.3 % (1.7-9.3); PLATELET COUNT 274 K/mm3 (130-400); RED BLOOD COUNT 5.05 M/mm3 (4.10-5.30)
[2022-06-08 15:32] LABS: ALBUMIN 4.6 gm/dL (3.5-5.0); BILIRUBIN,TOTAL 0.6 mg/dL (0.2-1.2); CALCIUM 9.9 mg/dL (8.4-10.2); CREATININE, serum 0.79 mg/dL (0.57-1.11); POTASSIUM 3.7 mmol/L (3.5-4.5); TOTAL PROTEIN 7.9 gm/dL (6.2-8.1)
[2022-06-08] MEDS ORDERED: ZOFRAN ODT4 MG PO (16:05)
[2022-06-08 16:37] VITALS: BP 103/76; PULSE 76; TEMP 98.8
== END 2022-06-08 16:37 | disposition home or self-care (01) ==
LOC: COL.ER 13:59
PROVIDERS: Personal Emergency Response Attendant
DX: R11.2 Nausea with vomiting, unspecified (principal); F17.210 Nicotine dependence, cigarettes, uncomplicated; Z91.040 Latex allergy status; Z28.310 Unvaccinated for COVID-19
CPT/HCPCS: J1790; J2270; J7030; Q9967

== ENCOUNTER 2024-03-25 22:30 | Emergency (ER) | payer OTHER, MEDICAID ==
[~2024-03-25] VITALS: Ht 160 cm; Wt 54.5 kg
[2024-03-25 22:35] VITALS: TEMP 98.1
[2024-03-25] MEDS ORDERED: Ibuprofen 600 MG TAB PO ONE (23:00)
[2024-03-25 23:08] VITALS: BP 127/66; PULSE 77
== END 2024-03-25 23:17 | disposition home or self-care (01) ==
LOC: COL.ER 22:30
DX: S69.91XA Unspecified injury of right wrist, hand and finger(s), initial encounter (principal); Z91.040 Latex allergy status; W22.8XXA Striking against or struck by other objects, initial encounter; Y92.810 Car as the place of occurrence of the external cause

== ENCOUNTER 2024-05-18 11:36 | Emergency (ER) | payer OTHER ==
[~2024-05-18] VITALS: Ht 160 cm; Wt 48.6 kg
[2024-05-18 11:45] VITALS: BP 135/87; PULSE 88; TEMP 98.6
[2024-05-18 12:19] LABS: COLLECTION METHOD CLEAN CATCH
[2024-05-18 12:43] LABS: PH 5.5 (5.0-8.5); URINE APPEARANCE CLEAR (CLEAR/HAZY); URINE BLOOD NEGATIVE (NEGATIVE); URINE COLOR YELLOW (YELLOW); URINE GLUCOSE NEGATIVE (NEGATIVE); URINE KETONE NEGATIVE (NEGATIVE); URINE NITRATE NEGATIVE (NEGATIVE); URINE PROTEIN(semi-quant) NEGATIVE (NEGATIVE); URINE UROBILINOGEN 0.2 E.U/dL (0.2-1.0)
[2024-05-18 12:44] LABS: BASO # 0.1 K/mm3 (0.0-0.2); BASO % 0.6 % (0.0-2.0); EOS # 0.1 K/mm3 (0.0-0.7); EOS % 1.4 % (0.0-4.0); GRAN % 61.9 % (42.2-75.2); HEMATOCRIT 40.4 % (37.0-47.0); HEMOGLOBIN 13.4 g/dl (12.5-16.0); LYMPH # 3.1 K/mm3 (1.2-3.4); LYMPH % 31.3 % (20.0-51.0); MEAN CELL VOLUME 91 fl (80.0-100.0); MEAN CORPUSCULAR HEMOGLOBIN 30 pg (27-31); MEAN CORPUSCULAR HGB CONC 33 g/dl (33.0-37.0); MEAN PLATELET VOLUME 9.8 fl (7.4-10.4); MONO # 0.4 K/mm3 (0.1-0.6); MONO % 4.5 % (1.7-9.3); PLATELET COUNT 295 K/mm3 (130-400); RED BLOOD COUNT 4.42 M/mm3 (4.10-5.30); REDCELL DISTRIBUTION WIDTH-CV 12.7 % (11.5-14.5)
[2024-05-18 12:46] LABS: BILIRUBIN,TOTAL 0.3 mg/dL (0.2-1.2); CREATININE, serum 1.02 mg/dL (0.57-1.11); POTASSIUM 3.9 mEq/L (3.5-4.5); TOTAL PROTEIN 7.1 g/dl (6.2-8.1)
== END 2024-05-18 12:46 | disposition left against medical advice (07) ==
LOC: COL.ER 11:36
PROVIDERS: Emergency Medicine
DX: S60.212A Contusion of left wrist, initial encounter (principal); S20.212A Contusion of left front wall of thorax, initial encounter; R10.12 Left upper quadrant pain; Z91.040 Latex allergy status; Y04.0XXA Assault by unarmed brawl or fight, initial encounter

== ENCOUNTER 2024-09-07 17:30 | Emergency (ER) | payer OTHER ==
[~2024-09-07] VITALS: Ht 160 cm; Wt 68.2 kg
[2024-09-07 17:34] VITALS: TEMP 98.2
[2024-09-07 20:23] VITALS: BP 114/71; PULSE 66
== END 2024-09-07 20:23 | disposition home or self-care (01) ==
LOC: COL.ER 17:30
DX: T78.2XXA Anaphylactic shock, unspecified, initial encounter (principal); Z87.891 Personal history of nicotine dependence